=== PATIENT | male | born 1980 | race Caucasian/White ===

== ENCOUNTER 2019-10-09 17:57 | Emergency (ER) | payer OTHER, SELFPAY ==
--- NOTE | 2019-10-09 17:59 | XR_ITS ---
WS: [id number] RIGHT HAND: 3 VIEW(S) TECHNIQUE: PA, oblique and lateral. HISTORY: injury COMPARISON: None available. No acute fracture or dislocation. Soft tissue injury involving the distal second finger. No foreign body. XR/XR hand RT min 3V* [id number] IMPRESSION: Soft tissue injury distal second finger. No fracture.
[2019-10-09 18:06] VITALS: BMI 23.0
[2019-10-09 18:09] VITALS: BP 134/74; PULSE 73; RESP 16; TEMP 36.6; O2SAT 97
--- NOTE | 2019-10-09 18:40 | ED_ITS ---
HPI - Extremity Problem General: Chief complaint: Extremity Injury, Upper Stated complaint: right finger smash Time Seen by Provider: 10/09/19 18:37 History of Present Illness: HPI Narrative: Patient is a 39-year-old male comes to the ED with a laceration on right index finger. Injury occurred a couple hours just prior to arrival. Patient was working on a vehicle and he said that his skin got pinched between the car and tool and he pulled his right hand away causing the laceration. Patient says he is unsure of his last tetanus shot. He states he has not had MRSA or staph in the past. Associated symptoms: Deny chest pain, fever(s) or rash Review of Systems Const: Denies: fever(s), chills or fatigue Eyes: Denies: change in vision or eye discomfort ENMT: Denies: throat pain, odynophagia, nasal discharge or nasal congestion Card: Denies: chest pain, palpitations, edema, swelling of feet/ankles, dyspnea on exertion or orthopnea Resp: Denies: dyspnea, productive cough or non-productive cough GI: Denies: abdominal pain, nausea, vomiting, diarrhea, constipation or hematochezia : Denies: flank pain, difficulty urinating, dysuria or hematuria Musc: Denies: neck pain, back pain or extremity swelling Skin/Breast: Reports: new lesions; Denies: rash Neuro: Denies: headache(s), numbness in extremities or weakness in extremities Physical Exam Const: COMMON NORMALS: no acute distress, patient oriented x3, healthy appearing and alert GENERAL APPEARANCE: cooperative and comfortable HENMT: COMMON NORMALS: normocephalic HEAD & SCALP: normocephalic MOUTH: Normal oral and palatal mucosa present THROAT: posterior oropharynx normal and uvula midline Neck/C-Spine: COMMON NORMALS: supple GENERAL: Yes normal visual inspection Resp: COMMON NORMALS: normal respiratory effort, No retractions, No use of accessory muscles and clear to auscultation bilaterally AUSCULTATION: clear to auscultation bilaterally Cardio: COMMON NORMALS: regular rate, regular rhythm, S1 normal heart sound present, S2 normal heart sound present, No gallops present (Cardio), No clicks present (Cardio), No murmurs present (Cardio) and Peripheral pulses 2+ throughout RATE: regular rate RHYTHM: regular rhythm HEART SOUNDS: S1 normal heart sound present and S2 normal heart sound present PERIPHERAL PULSES: Peripheral pulses 2+ throughout GI: COMMON NORMALS: Normal to inspection, nondistended, normoactive bowel sounds present, Soft to palpation, non-tender and no masses PALPATION: Yes Soft to palpation : COMMON NORMALS: Yes no CVA tenderness BLADDER/KIDNEY EXAM: Yes no CVA tenderness Back/Pelvis: COMMON NORMALS: no CVA tenderness Extremity: RIGHT UPPER EXTREMITY: Yes hand & digits Right hand and digits: Yes inspection (Curved laceration of the pad of skin on index finger. The nail is not involved. Laceration size about 3 cm. It is not actively bleeding.), Yes ROM exam (full) and Yes neurovascular exam (intact) Neuro: COMMON NORMALS: patient oriented x3 and moves all extremities SENSORIUM/ORIENTATION: Yes alert Skin: NARRATIVE SKIN EXAM: Laceration details explained in the extremity section of the physical exam. GENERAL SKIN EXAM: dry skin Procedures Laceration Laceration 1: Site: hand Side (If applicable): right Size (cm): 3 Description: irregular (curved) and clean Depth: simple, single layer Local Anesthetic: lidocaine 2% (digital block) Amount of anesthesia used (mL): 10 Pre-repair: irrigated extensively (With normal saline and cleaned with alcohol swabs.) Skin layer closed with: nylon Size (cm): 4-0 Number of sutures: 7 Technique: simple, interrupted Nerve Block Nerve Block 1: Time out performed: Yes Local Anesthetic: lidocaine 2% Amount of anesthesia used (mL): 10 Side: right Nerve Blocks: digital (index finger (2nd digit)) Procedure Successful: Yes Patient Tolerated Procedure: well Complications: none Course Vital Signs: Vital signs: Vital Signs Temperature 97.9 F 10/09/19 18:09 Pulse Rate 73 10/09/19 18:09 Respiratory Rate 18 10/09/19 20:00 Blood Pressure 134/74 10/09/19 18:09 Pulse Oximetry 97 10/09/19 18:09 MDM - Extremity (Nontraumatic) MDM Narrative: Medical decision making narrative: Patient is a 39-year-old male who comes to the ED with a laceration on right index finger X-ray of right hand showed no fractures. Laceration site was irrigated extensively with normal saline and cleaned with alcohol swabs. Digital nerve block was performed and 7 sutures were placed to close laceration. Patient was given an updated tetanus shot and a dose of Keflex while here in the ED. He was discharged and told to have sutures removed in 7 to 10 days and given a prescription for Keflex. Patient told to keep wound dry for the next 48 hours and to then clean and re- bandage daily. He was told about signs of infection to watch for. Patient understood and agreed with plan. Imaging Data^: Xray Ortho: Attestation: I personally reviewed and interpreted this imaging study as follows: My impression: Right hand x-ray showed no acute fractures or findings. Pending final radiology report. Discharge Plan Discharge Patient Disposition: Home, Self-Care Clinical Impression: Laceration Condition: Stable Prescriptions: New Keflex 500 mg capsule 500 mg PO TID 3 Days Qty: 9 RF: 0 No Action ibuprofen 200 mg Tablet 200 mg PO Q6H PRN (Reason: Pain) RF: 0 albuterol sulfate 90 mcg/actuation Hfa Aerosol Inhaler 1 inh INHALATION QID PRN (Reason: SHORTNESS OF BREATH]) RF: 0 Discharge Orders: Discharge Order (Routine); Ordered 10/09/19 Ordered By: Channing De La Fuente Discharge Diet: Regular Discharge Activity: Limit activity as instructed Patient Instructions: Suture Care (ED), Laceration (ED), Finger Laceration (ED) Activity Restrictions/Additional Instructions: Take full course of antibiotics as prescribed. Keep laceration site clean and dry for the next 48 hours. Then after that you can clean and re-bandage daily. Watch for signs of infection such as redness, warmth, increased tenderness and puslike drainage. If you see the signs of infection return to the ED, urgent care or PCP for reevaluation. call your PCP to schedule a follow-up appointment for reevaluation in the next 7 to 10 days and to get sutures removed. Continue taking all home meds. You can take Tylenol or ibuprofen for pain. Follow discharge plans as discussed. You can return to the ED if symptoms worsen. Discharge Date/Time: 10/09/19 20:32 Coding Level of Care Code ED [employer] Equipment Operator for Albino Mena Exam Comprehensive
[2019-10-09 18:50] VITALS: RESP 18
[2019-10-09] MEDS: cephALEXin 500 mg Capsule PO (19:15)
[2019-10-09] MEDS: tetanus-dipt-pertussis 0.5 mL SDV IM (19:16)
[2019-10-09] MEDS: lidocaine 2% INJ 20 mL INJECTION (19:17)
[2019-10-09 19:50] VITALS: RESP 18
[2019-10-09 20:00] VITALS: RESP 18
== END 2019-10-09 20:32 | disposition home or self-care (01) ==
PROVIDERS: Emergency Provider Physician Assistant
DX: S61.210A Laceration without foreign body of right index finger without damage to nail, initial encounter (principal); W23.0XXA Caught, crushed, jammed, or pinched between moving objects, initial encounter; Z23 Encounter for immunization
CPT/HCPCS: 12002; 12345; 73130; 90471; 90715; 99281; 99283; J2001

== ENCOUNTER → 2021-04-14 16:04 | Outpatient (BNVA) | payer OTHER, SELFPAY | PROVIDERS: PCP Internal Medicine; Visit Provider Internal Medicine | DX: R23.8 Other skin changes (principal) | CPT/HCPCS: 84443; 85049; 85384; 85610; 85730 ==

== ENCOUNTER → 2022-01-11 14:22 | Outpatient (BNVA) | payer OTHER, SELFPAY | PROVIDERS: PCP Internal Medicine; Visit Provider Student in an Organized Health Care Education/Training Program | DX: S46.811A Strain of other muscles, fascia and tendons at shoulder and upper arm level, right arm, initial encounter (principal); X58.XXXA Exposure to other specified factors, initial encounter; M75.41 Impingement syndrome of right shoulder | CPT/HCPCS: 73030 ==

== ENCOUNTER 2024-07-05 11:20 | Outpatient (CLI) | payer OTHER, SELFPAY ==
--- NOTE | 2024-07-05 11:26 | XR_ITS ---
WS: [id number] XR chest 2V* [id number] REASON FOR EXAM: PERSISENT COUGH FINDINGS: Mild tortuosity of the thoracic aorta. The mediastinum appears widened. Heart is at the upper limits of normal in size. Calcified granulomatous disease in both hemithoraces. Flattening of the hemidiaphragms. Linear scarring/atelectasis in the left lower lung. XR/XR chest 2V* [id number] IMPRESSION: The mediastinum appears widened. This is not readily attributable to tortuous g reat vessels. Possibly an increased amount of mediastinal fat. No prior chest f ilms for comparison. Recommend follow-up CT scan of the chest with contrast to exclude mediastinal mass.
== END 2024-07-05 11:21 | disposition home or self-care (01) ==
PROVIDERS: PCP Internal Medicine; Visit Provider Internal Medicine
DX: R05.3 Chronic cough (principal); R93.89 Abnormal findings on diagnostic imaging of other specified body structures; D71 Functional disorders of polymorphonuclear neutrophils; J98.11 Atelectasis; J98.4 Other disorders of lung
CPT/HCPCS: 71046

== ENCOUNTER 2024-09-13 09:13 | Outpatient (CLI) | payer OTHER, SELFPAY ==
--- NOTE | 2024-09-13 09:21 | CTR_ITS ---
PROCEDURE INFORMATION: Exam: CT Chest With Contrast; Diagnostic Exam date and time: 09/13/2024 9:59 AM Age: 44 years old Clinical indication: Persistent cough, asthma TECHNIQUE: Imaging protocol: Diagnostic computed tomography of the chest with contrast. Radiation optimization: All CT scans at this facility use at least one of these dose optimization techniques: automated exposure control; mA and/or kV adjustment per patient size (includes targeted exams where dose is matched to clinical indication); or iterative reconstruction. Contrast material: OMNIPAQUE 350; Contrast volume: 100 ml; Contrast route: INTRAVENOUS (IV); COMPARISON: CR XR chest 2V* [id number] 07/05/2024 11:31 AM RADIATION DOSE METRICS: Total DLP (mGy-cm): 345.14 FINDINGS: Lungs: Unremarkable. No consolidation. No masses. Pleural spaces: Unremarkable. No pneumothorax. No pleural effusion. Heart: Unremarkable. No cardiomegaly. No pericardial effusion. Lymph nodes: Unremarkable. No enlarged lymph nodes. Vasculature: Unremarkable. No aortic aneurysm. Bones/joints: Unremarkable. No acute fracture. Soft tissues: Unremarkable. CT/CT chest w con* [id number] IMPRESSION: No acute findings.
[2024-09-13] MEDS: iohexol 350 mg/mL 500 mL Btl (per mL) IV (10:05)
== END 2024-09-13 09:14 | disposition home or self-care (01) ==
LOC: RAD 09:17
PROVIDERS: PCP Internal Medicine; Visit Provider Internal Medicine
DX: R05.3 Chronic cough (principal)
CPT/HCPCS: 71260

== ENCOUNTER 2025-03-29 07:10 | Outpatient (CLI) | payer OTHER, SELFPAY ==
--- NOTE | 2025-03-29 07:20 | MR_ITS ---
WS: [id number] MRI HEAD WITH CONTRAST WITH ATTENTION TO THE INTERNAL AUDITORY CANALS TECHNIQUE: Sagittal T1, T2 axial, T2 axial flair, axial susceptibility weighted imaging, axial diffusion weighted images, and coronal T2 images were obtained. Pre and post T1 axial and post T1 coronal images. ADC and FSPGR images. Post gadolinium images with attention to the internal auditory canals. Axial fiesta imaging. CLINICAL INFORMATION: BILATERAL HEARING LOSS COMPARISON: None. FINDINGS: No evidence of restricted diffusion to suggest acute ischemia. No suspicious intracranial signal abnormalities. Normal posterior fossa. Normal vascular flow voids at the skull base. No extra-axial fluid collections. Enhancing lobulated polypoid lesion in the LEFT maxillary sinus measuring 2.6 x 1.6 cm partially visualized. No hemosiderin on the susceptibly weighted images. Proximal seventh and and eighth cranial nerves are normal. No evidence of enhancing IAC or CP angle mass. Normal trigeminal nerve root entry zones. MR/MR iac's wo/w con* [id number] IMPRESSION: 1. Proximal seventh and eighth cranial nerves are normal in appearance. No jerry dence of enhancing IAC or CP angle mass. 2. Mastoid air cells are well aerated. 3. Enhancing polypoid lesion LEFT maxillary sinus measuring 2.6 x 1.6 cm. Cain mmend follow-up with ENT. 4. No hemosiderin on susceptibly weighted images.
[2025-03-29] MEDS: gadobenate dimeglumine 20 mL vial IV (08:06)
== END 2025-03-29 07:11 | disposition home or self-care (01) ==
LOC: RAD 07:13
PROVIDERS: PCP Internal Medicine; Visit Provider Nurse Practitioner Family
DX: H91.93 Unspecified hearing loss, bilateral (principal); J34.89 Other specified disorders of nose and nasal sinuses
CPT/HCPCS: 70553